=== PATIENT | male | born 1940 | race Caucasian/White ===

== ENCOUNTER 2017-11-30 13:31 | Observation (INO) ==
--- NOTE | 2017-11-30 14:31 | Emergency Department Report ---
Syncope HPI - General Chief Complaint: Syncope Stated Complaint: syncope Time Seen by Provider: 11/30/17 14:45 Source: patient, family Mode of arrival: EMS Limitations: no limitations - History of Present Illness HPI narrative: 77 YO M brought to ED via EMS after syncopal episode at restaurant today. Patient says while standing in line waiting to be seated he began to feel lightheaded and clammy. Went to the restroom and came back out. Patient says he did feel nauseated, but did not "really vomit". Patient took 1 nitro tab at that time due to nausea and feeling clammy. He denies having any chest pain or SOA. Patient had syncopal episode after taking nitro. says that she thinks patient was down approx. 3 minutes. Denies any jerking movement with syncopal event. Patient had heart catheterization by Dr. Lundberg on 11-19-17 and was started on Imdur at that time. Patient's cath report indicated multi-vascular CAD. Patient was recommend for stent. Patient says that he had not eaten prior to lunch or at much to drink this morning. Admits a nonproductive cough for over 1 month. Patient denies fever, chills, abdominal pain, or ataxia. - Related Data Home Medications Medication Instructions Recorded Confirmed Atorvastatin [Lipitor] 80 mg PO DAILY #0 09/06/09 11/30/17 Tamsulosin HCl [Flomax] 0.4 mg PO HS #0 02/07/12 11/30/17 Aspirin [Ecotrin] 81 mg PO DAILY 11/18/17 11/30/17 Nitrostat (nitroglycerin) 0.4 mg 0.4 mg SL Q5M PRN 11/27/17 11/30/17 sublingual tablet Toprol XL metoprolol succinate ER 100 mg PO DAILY 11/27/17 11/30/17 100 mg tablet,extended release 24 hr Tylenol Arthritis 650 mg 1,300 mg PO Q8H PRN 11/27/17 11/30/17 tablet,extended release Ezetimibe 10 mg PO DAILY 11/30/17 11/30/17 Finasteride [Proscar] 5 mg PO HS 11/30/17 11/30/17 buPROPion HCl [Bupropion HCl Sr] 150 mg PO BID 11/30/17 11/30/17 Allergies Allergy/AdvReac Type Severity Reaction Status Date / Time Sulfa (Sulfonamide Allergy Unknown Verified 11/30/17 13:58 Antibiotics) codeine AdvReac Mild Hyperactive Verified 11/30/17 13:58 propoxyphene napsylate AdvReac Mild GETS NO Uncoded 02/10/12 11:21 RELIEF Review of Systems All systems: reviewed and negative except as stated Constitutional: Reports: as per HPI, other (syncope) Gastrointestinal: Reports: as per HPI, nausea PFSH Patient Stated Medical History Cataracts Yes Hypertension Yes Myocardial Infarction Yes: 2007 Diabetes Mellitus Type 1 No Diabetes Mellitus Type 2 No Other GI Yes: umbilical hernia Hx Benign Prostatic Yes Hyperplasia Anemia Yes Other Hematologic Yes: HX DVT LEGS Depression Yes Surgical History: Heart cath. tonsillectomy. hernia Family History: Mother and brother heart disease - Social History Smoking status: Current every day smoker Household members: spouse Physical Exam - Limitations Limitations: no limitations - General General appearance: alert, in no apparent distress - Normal Exams: Head:: Normocephalic without trauma Eyes:: Pupils are PERRLA w/ EOMI, No scleral icterus, irritation, or foreign bodies noted ENMT:: No facial trauma, nasal exudates, pharyngeal erythema, or exudates are noted Neck:: Full range of motion, without adenopathy, JVD Chest/Respirations:: Clear all pineda, with good airflow, and symmetry bilaterally Cardiovascular:: Regular rate and rhythm, without murmur or gallop Abdomen:: Bowel sounds positive, soft, non-tender, non-distended, no hepatosplenomegaly Musculoskeletal:: No tenderness, or deformity noted, good range of motion, all extremities Integumentary:: No rashes Neurological:: Patient is alert, and oriented, cranial nerves, motor/sensory/ cerebellar, exams w/o gross deficits, to observation Psychiatric:: Patient exhibits, appropriate attention, emotion and affect - ENT ENT exam: Present: mucous membranes moist, TM's normal bilaterally - Neck Neck exam: Present: trachea midline - Skin Skin exam: Present: warm, dry, pallor - Expanded Neurological Exam Motor strength - LUE: 5/5 Motor strength - RUE: 5/5 Motor strength - LLE: 5/5 Motor strength - RLE: 5/5 Course - Consultations Consultation #1: Discussed patient's HPI, past medical history, labs, CT head, vital signs, exam findings and treatment in the ER with Dr. Lundberg. Dr. Lundberg would like patient admitted observation under hospitalist and he will consult. Consultation #2: I discussed patient's HPI past medical history, labs, head CT, EKG, exam findings and treatment and conversation I had with Dr. Lundberg in the ER with Dr. Bingham. Dr. Bingham will admit patient. Vital Signs Temperature 97.3 F 11/30/17 13:35 Pulse Rate 51 L 11/30/17 13:35 Respiratory Rate 18 11/30/17 13:35 Blood Pressure 113/59 11/30/17 13:35 Pulse Oximetry 96 11/30/17 13:35 Temperature 97.6 F 12/01/17 07:30 Pulse Rate 65 12/01/17 12:01 Respiratory Rate 15 12/01/17 07:30 Blood Pressure 140/71 H 12/01/17 12:01 Pulse Oximetry 96 12/01/17 07:30 Syncope - MDM Narrative Medical decision making narrative: Patient states he is feeling much better after 1 L of normal saline. Improving blood pressure after fluids with improving color. WBC 9.2 Hgb 11.2 (noted anemia from past medical record) Chemistries unremarkable Troponin 0.104 CT head no acute intracranial findings I discussed with patient due to his syncopal episode/symptoms and PMH that Dr. Lundberg would like him admitted observation status. Patient and his agree with admission. - Differential Diagnosis Likely: syncope due to orthostatic hypotension, vasovagal syncope, complete atrioventricular block, subarachnoid hemorrhage, dehydration (, Medication affect) - Medical Records Attestation: I reviewed the patient's medical records. - Lab Data Attestation: I reviewed the patient's lab results. Result diagrams: 12/01/17 04:22 12/01/17 04:22 Lab Results 11/30/17 11/30/17 Range/Units 15:03 15:03 WBC 9.2 (4.5-11.0) T/MM3 RBC 4.36 L (4.50-5.90) M/MM3 Hgb 11.2 L (13.5-17.5) GM/DL Hct 36.4 L (41-53) % MCV 83.5 (80-100) UM3 MCH 25.7 L (26-34) UUG MCHC 30.8 L (31-37) GM/DL RDW Std Deviation 48.5 (36.9-50.2) FL Plt Count 240 (130-400) T/MM3 MPV 11.3 (9.4-12.4) UM3 Neutrophils % (Manual) 80.0 H (33-66) % Lymphocytes % (Manual) 16.0 L (23-45) % Monocytes % (Manual) 3.0 (0-9.0) % Eosinophils % (Manual) 1.0 (0-4) % Neutrophils # (Manual) 7.4 (1.8-7.7) T/MM3 Lymphocytes # (Manual) 1.5 (1-4.8) T/MM3 Monocytes # (Manual) 0.3 (0-0.8) T/MM3 Eosinophils # (Manual) 0.1 (0-0.5) T/MM3 RBC Morph Comment Normal Turbidity < 20 (0-20) Sodium 142 (134-144) MEQ/L Potassium 4.3 (3.6-5) MEQ/L Chloride 110 H (98-107) MEQ/L Carbon Dioxide 23 (22-30) MEQ/L Anion Gap 9 (5-15) MEQ/L BUN 15.0 (9-20) MG/DL Creatinine 1.2 (0.8-1.5) MG/DL GFR Calculation 59 BUN/Creatinine Ratio 13 (6-26) RATIO Glucose 111 H (75-110) MG/DL Calculated Osmolality 275 (261-280) MOSM/KG Calcium 8.5 (8.4-10.2) MG/DL Total Bilirubin < 0.10 L (0.20-1.30) MG/DL Icterus Index < 2 (0-7) AST 19 (17-59) U/L ALT 32 (21-72) U/L Alkaline Phosphatase 74 (38-126) U/L Troponin I < 0.012 (0-0.12) ng/ml Total Protein 6.1 L (6.3-8.2) G/DL Albumin 3.2 L (3.5-5.0) G/DL Globulin 2.9 (2.4-3.6) G/DL Albumin/Globulin Ratio 1.1 (1.1-2.2) RATIO Specimen Hemolysis < 15 (0-25) - Radiology Data Attestation: I reviewed the patient's radiology results. CT head: no acute intracranial findings ([facility]-RAD) - EKG Data EKG #1 EKG attestation: Yes: I reviewed and interpreted this EKG. EKG results narrative: Sinus bradycardia HR 47 bpm, first degree AV block (Dr. Galloway) Disposition Clinical Impression: Bradycardia Episode of syncope Qualifiers: Syncope type: unspecified Qualified Code(s): R55 - Syncope and collapse Disposition: 02 [place] [facility] [place]: Improved - Seen By: midlevel
[2017-11-30] MEDS ORDERED: NS 1,000 ML IV ONE (14:57)
[2017-11-30] MEDS: SALINE FLUSH 10ml SYRINGE IVF PRN ×2 (15:03→17:17)
--- NOTE | 2017-11-30 16:41 | History & Physical Report ---
History of Present Illness Date: 11/30/17 Chief complaint: syncopal episode HPI: Mr Connolly is a pleasant 77-year-old male who was out to eat lunch with his today at [facility]. He was standing in line, and began to feel lightheaded, followed by nausea. He proceeded to have a syncopal episode that was witnessed by the . EMS was contacted and transported patient to [facility] emergency room for further evaluation. On arrival, patient was found to be mildly hypotensive with a systolic in the 90s. He was also pale and diaphoretic initially. He was given a liter of fluid and had basic laboratory studies obtained. Was noted to be mildly anemic with a hemoglobin of 11.2, however, this is a known chronic problem being worked out in the outpatient setting. Chemistry panel was normal, troponin undetectable. 12 lead EKG- Sinus mee at 47 with first-degree AV block. CT scan of the brain was unremarkable. Patient underwent a cardiac catheterization on 11/19/17 under the care of Dr. Lundberg. He was found to have multi-vascular coronary artery disease and was recommended to have coronary stent placement versus CABG following outpatient workup for anemia. Postprocedure, patient was started on Imdur 30 milligrams daily. He has not had any episodes of lightheadedness, dizziness or chest pain since her catheterization. He does state that he did not eat much this morning as he anticipated a big lunch. Patient is seen at time of admission, he is alert, oriented and pleasant accompanied by family. He is sitting up on the edge of the bed, he does appear mildly pale, however reports this is much improved from previously. He is noted to be bradycardic in the 40s to 50s at the bedside monitor. He is without any complaints currently. States he feels much better following IV fluids. We did discuss advanced directives. He does indicate he would like to be a full code in an acute situation, however, would not want life-sustaining measures long-term such as ventilation or feeding tube. Review of Systems All systems PM: 10-point ROS was reviewed, no additional remarkable complaints except Review of systems: Currently denies all review of systems. Prior to his syncopal event. He complained of diaphoresis, nausea, lightheadedness and dizziness Past Medical History Patient Stated Medical History Coronary artery disease History of [place]-2007 Hypertension Hypercholesterolemia Anemia History of DVT Depression BPH Cataracts Medical History Updates: Heart Cath- 11/19/17- Dr Lundberg. IMPRESSION. 1. Multivessel coronary artery disease as manifested by severe occlusion of the first obtuse marginal branch (complex lesion) of about 90% as described above. In addition, the second obtuse marginal branch has about 60% stenosis. The proximal LAD stent appears angiographically patent. Ostial LAD exhibits a moderate stenosis angiographically estimated about 50%-60%. 2. Dominant LCX. 3. Normal left ventricular systolic function. Surgical History: Prostate biopsy. Tonsillectomy. Angioplasty-2007. 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 Umbilical hernia repair. Rec extraction Family History Updates: Father-diabetes. Mother-heart disease. multiple Brothers -heart disease and diabetes - Social History Smoking status: Current every day smoker Substance use type: does not use Alcohol intake frequency: does not drink Housing: house Household members: spouse Current occupational status: retired Social history: Primary care provider, Dr Torres Radiologists, Dr. Lundberg Medications Home Medications Medication Instructions Recorded Confirmed Type Atorvastatin [Lipitor] 80 mg PO DAILY #0 09/06/09 11/30/17 History Tamsulosin HCl [Flomax] 0.4 mg PO HS #0 02/07/12 11/30/17 History Aspirin [Ecotrin] 81 mg PO DAILY 11/18/17 11/30/17 History Nitrostat (nitroglycerin) 0.4 mg 0.4 mg SL Q5M PRN 11/27/17 11/30/17 History sublingual tablet Toprol XL metoprolol succinate ER 100 mg PO DAILY 11/27/17 11/30/17 History 100 mg tablet,extended release 24 hr Tylenol Arthritis 650 mg 1,300 mg PO Q8H PRN 11/27/17 11/30/17 History tablet,extended release Ezetimibe [Ezetimibe] 10 mg PO DAILY 11/30/17 11/30/17 History Finasteride [Proscar] 5 mg PO HS 11/30/17 11/30/17 History buPROPion HCl [Bupropion HCl Sr] 150 mg PO BID 11/30/17 11/30/17 History Allergies Allergy/AdvReac Type Severity Reaction Status Date / Time Sulfa (Sulfonamide Allergy Unknown Verified 11/30/17 13:58 Antibiotics) codeine AdvReac Mild Hyperactive Verified 11/30/17 13:58 propoxyphene napsylate AdvReac Mild GETS NO Uncoded 02/10/12 11:21 RELIEF Exam Vital Signs: Temperature 97.3 F 11/30/17 13:35 Pulse Rate 58 L 11/30/17 15:41 Respiratory Rate 18 11/30/17 13:35 Blood Pressure 112/55 11/30/17 15:41 Pulse Oximetry 98 11/30/17 15:41 Telemetry Rhythm: Sinus Bradycardia Height/Weight/BMI: Height 1.8 m Weight 95.254 kg - Constitutional Present: no acute distress, well nourished, well developed - Routine HEENT Exam Eye: Present: EOMI ENT: Present: mucous membranes moist, dentition normal - Routine Respiratory Exam Present: CTA bilaterally. Absent: wheezes - Routine Cardiovascular Exam Present: RRR, S1, S2. Absent: murmur - Routine Abdominal Exam Present: soft, normoactive bowel sounds, non distended. Absent: tenderness - Routine Extremities Exam Present: full ROM - Routine Back/Spine/Pelvis Exam Back/Spine: Present: full ROM - Routine Skin Exam Present: intact, dry, pallor, warm - Routine Neurological Exam Present: alert, oriented X3, CN II-XII intact, moving all extremities - Routine Psychiatric Exam Present: normal affect, cooperative Results - Labs CBC & Chem 7: 11/30/17 15:03 11/30/17 15:03 Assessment and Plan (1) Episode of syncope Current visit: Yes Status: Acute (2) Sinus bradycardia Current visit: Yes Status: Acute Assessment and Plan: Impression Syncopal episode Bradycardia Known coronary artery disease Anemia Hypertension Hyperlipidemia Chronic tobacco use Plan Admit patient to outpatient observation under care of Dr. Bingham for syncopal episode and bradycardia. Will monitor patient on cardiac telemetry given bradycardia. Consult placed to Dr. Lundberg for his expertise and medication recommendation. Patient does continue to be bradycardic and has recently been placed on Imdur 30 a day in addition to metoprolol succinate 100 milligrams daily. Discussed with patient and that he may use home medications during hospital stay. Continue with gentle hydration, normal saline at 100 ML per hour May have cardiac diet SCDs to bilateral lower extremity for DVT prophylaxis Recheck morning labs Full Code as requested by patient Will discuss further orders and plan of care with attending, Dr. Bingham At time of discharge medical care will return to primary care provider, Dr Torres DVT Prophylaxis: SCD's Resuscitation Status: Full Code - Physician Narrative Physician: Elsa Bingham MD Narrative: Date: 11/30/17 Time: 1939 I have independently evaluated and examined this patient. I reviewed the chart, the patient's history, and the [employer]PRENTICE/PA's documented findings as above. We discussed and formulated the assessment and plan as above with additions as below: Mr. Connolly was seen with his at the bedside. Syncope earlier today preceded by nausea, dizziness, and feeling clammy is described. The patient vomited and began to lose consciousness at which time he was assisted to the floor but did strike his head although not intensely. There was associated fecal incontinence but no seizure activity described. Patient subsequently ambulated in the emergency room without difficulty. Patient is unaware of what his heart rate chronically runs but review of hospitalization for cardiac catheterization indicates heart rates typically in the 50s. NAD, alert, fluent speech Respirations nonlabored, good airflow, regular cardiac rhythm with borderline bradycardia, S1-S2 EKG without acute changes per ER description-tracing did not accompany patient to the floor and has not been scanned into the electronic record. Telemetry with sinus bradycardia. Initial troponin nondetectable. Head CT reviewed by myself-no acute pathology. Observe overnight with neuro checks, serial troponins, and continued telemetry. Dr. Lundberg will review in a.m. Discussed with Dr. Lundberg and ER provider. Hospital Course Summary Disclaimer: The visit summary below is not to be considered part of the above Progress Note. Hospital Course: Impression Syncopal episode Bradycardia Known coronary artery disease Anemia Hypertension Hyperlipidemia Chronic tobacco use Plan Admit patient to outpatient observation under care of Dr. Bingham for syncopal episode and bradycardia. Will monitor patient on cardiac telemetry given bradycardia. Consult placed to Dr. Lundberg for his expertise and medication recommendation. Patient does continue to be bradycardic and has recently been placed on Imdur 30 a day in addition to metoprolol succinate 100 milligrams daily. Discussed with patient and that he may use home medications during hospital stay. Continue with gentle hydration, normal saline at 100 ML per hour May have cardiac diet SCDs to bilateral lower extremity for DVT prophylaxis Recheck morning labs Full Code as requested by patient Will discuss further orders and plan of care with attending, Dr. Bingham At time of discharge medical care will return to primary care provider, Dr Torres
[2017-11-30 17:16] VITALS: BMI 28.8
[2017-11-30] MEDS: NS 1,000 ML IV SCH (17:17)
[2017-11-30] MEDS ORDERED: NITROGLYCERIN 0.4 MG SUBLINGUAL TABLET SL PRN (17:59)
[2017-11-30] MEDS ORDERED: ACETAMINOPHEN 650 MG PO PRN (17:59)
--- NOTE | 2017-11-30 19:10 | CT Scan Report ---
Indication: syncope CT head/brain wo con: Comparison: None Technique: Nonenhanced axial imaging with brain and bone window evaluation using dose reduction imaging technology Findings: Patient shows degenerative changes with atrophy and deep white matter changes with no acute findings such as hemorrhage, midline shift or mass. Bone window evaluation showed no acute bony findings. No skull fractures are seen. Visualized sinuses and mastoids are clear. Impression: 1. Generalized atrophy and deep white matter change without acute findings such as hemorrhage, midline shift or mass effect. 2. Findings were communicated ordering clinician by the V rad service on a callback basis. .
[2017-11-30] MEDS ORDERED: --POM--TAMSULOSIN 0.4 MG CAPSULE PO SCH (21:00)
[2017-11-30] MEDS ORDERED: --POM--FINASTERIDE 5 MG TABLET PO SCH (21:00)
[2017-11-30] MEDS: BUPROPION 150 MG PO SCH (21:16)
[2017-11-30 23:29] VITALS: TEMP 97.6; O2SAT 96
[2017-12-01] MEDS ORDERED: DiphenhydrAMINE 25 MG CAPSULE PO ONE (00:30)
[2017-12-01] MEDS: NS 1,000 ML IV SCH (03:20)
[2017-12-01 07:31] VITALS: RESP 15
[2017-12-01] MEDS ORDERED: METOPROLOL SUCCINATE 100 MG PO SCH (09:00)
[2017-12-01] MEDS ORDERED: EZETIMIBE 10 MG PO SCH (09:00)
[2017-12-01] MEDS ORDERED: --POM--ATORVASTATIN 40 MG TABLET PO SCH (09:00)
[2017-12-01] MEDS ORDERED: --POM--ASPIRIN *EC* 81 MG TABLET PO SCH (09:00)
[2017-12-01] MEDS: BUPROPION 150 MG PO SCH (09:15)
--- NOTE | 2017-12-01 12:29 | Cardiology Consult Note ---
<Alexandra Coronado Alvaro - Last Filed: 12/01/17 13:25> History of Present Illness Consult reason: known to you History of present illness: Mr. Connolly is a 77 year old male known to me with a history of CAD. Pt was with his yesterday at [employer] for lunch and while standing in line he began to feel lightheaded and sweaty. He went to the bathroom and a short time later returned to where his was. They sat down at a table and pt began to feel sick again (per , he was very pale, cold and clammy, and sweating profusely). Pt took 1 NTG. Pt denied chest pain but took NTG because he thought it was his heart as to why he was feeling sick. Pt returned to the bathroom for a second time and then had a syncopal episode - (and a couple other individuals) was present because she followed him to the bathroom. said when pt fainted he had a BM. denied pt to have jerking movements or biting of his tongue. said pt came back a few minutes later - initially was "woozy" but then asked what had happened. EMS brought to ER. Pt said he had been doing okay prior to [facility]. Pt said yesterday morning he only had a cup of coffee in the morning and hadn't eaten anything prior to going to [employer] around 1pm. Pt today denies chest pain, heart palpitations, dizziness/lightheadedness, nausea. Pt having serial troponins - has trended up to 0.152 this a.m. at 0422. Pt is currently being worked up by Dr. Torres as outpatient for anemia - pt denies any melena or hematochezia. Following his heart cath on 11/19, which showed multivessel CAD, he had been started on Imdur - pt had been having right arm ache that was relieved with Imdur. Pt was being followed for multivessel CAD until after OP workup for anemia was complete. labs and tele reviewed Review of Systems All systems PM: 10-point ROS was reviewed, no additional remarkable complaints except PFSH Patient Stated Medical History Cataracts Yes Hypertension Yes Myocardial Infarction Yes: 2008 Other GI Yes: umbilical hernia Hx Benign Prostatic Yes Hyperplasia Anemia Yes Other Hematologic Yes: HX DVT LEGS Depression Yes Medical History Updates: Heart Cath- 11/19/17- Dr Lundberg. IMPRESSION. 1. Multivessel coronary artery disease as manifested by severe occlusion of the first obtuse marginal branch (complex lesion) of about 90% as described above. In addition, the second obtuse marginal branch has about 60% stenosis. The proximal LAD stent appears angiographically patent. Ostial LAD exhibits a moderate stenosis angiographically estimated about 50%-60%. 2. Dominant LCX. 3. Normal left ventricular systolic function. Surgical History: Prostate biopsy. Tonsillectomy. Angioplasty-2007. 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 Umbilical hernia repair. Rec extraction - Social History Smoking status: Current every day smoker Medications Home Medications Medication Instructions Recorded Confirmed Type Atorvastatin [Lipitor] 80 mg PO DAILY #0 09/06/09 11/30/17 History Tamsulosin HCl [Flomax] 0.4 mg PO HS #0 02/07/12 11/30/17 History Aspirin [Ecotrin] 81 mg PO DAILY 11/18/17 11/30/17 History Nitrostat (nitroglycerin) 0.4 mg 0.4 mg SL Q5M PRN 11/27/17 11/30/17 History sublingual tablet Toprol XL metoprolol succinate ER 100 mg PO DAILY 11/27/17 11/30/17 History 100 mg tablet,extended release 24 hr Tylenol Arthritis 650 mg 1,300 mg PO Q8H PRN 11/27/17 11/30/17 History tablet,extended release Ezetimibe 10 mg PO DAILY 11/30/17 11/30/17 History Finasteride [Proscar] 5 mg PO HS 11/30/17 11/30/17 History buPROPion HCl [Bupropion HCl Sr] 150 mg PO BID 11/30/17 11/30/17 History Allergies Allergy/AdvReac Type Severity Reaction Status Date / Time Sulfa (Sulfonamide Allergy Unknown Verified 11/30/17 13:58 Antibiotics) codeine AdvReac Mild Hyperactive Verified 11/30/17 13:58 propoxyphene napsylate AdvReac Mild GETS NO Uncoded 02/10/12 11:21 RELIEF Exam Vital signs: Temperature 97.6 F 12/01/17 07:30 Pulse Rate 67 12/01/17 07:30 Respiratory Rate 15 12/01/17 07:30 Blood Pressure 135/71 12/01/17 07:30 Pulse Oximetry 96 12/01/17 07:30 - Constitutional no acute distress, well developed, cooperative - Routine HEENT Exam Head: Present: normocephalic, atraumatic Eye: Present: EOMI, PERRL ENT: Present: mucous membranes moist - Routine Neck Exam Present: supple, full ROM, normal carotid upstroke. Absent: JVD, carotid bruit - Routine Respiratory Exam Present: CTA bilaterally. Absent: rhonchi, wheezes, crackles - Routine Cardiovascular Exam Present: RRR. Absent: murmur, gallop, rubs, JVD - Routine Abdominal Exam Present: soft, normoactive bowel sounds, non distended, non tender. Absent: rebound, guarding, organomegaly, mass - Routine Extremities Exam Present: edema, pulses intact, normal capillary refill. Absent: cyanosis, clubbing - Routine Skin Exam Present: intact, dry. Absent: cyanosis, erythema - Routine Neurological Exam Present: alert, oriented X3, CN II-XII intact, moving all extremities, vision grossly intact, hearing grossly intact, normal speech. Absent: sensory deficit , motor deficit, facial asymmetry - Routine Psychiatric Exam Present: normal affect, cooperative Results 12/01/17 04:22 12/01/17 04:22 Cardiac Enzymes 11/30/17 12/01/17 Range/Units 21:49 04:22 Troponin I 0.104 D 0.152 H (0-0.12) ng/ml CBC 12/01/17 Range/Units 04:22 WBC 6.7 (4.5-11.0) T/MM3 RBC 4.00 L (4.50-5.90) M/MM3 Hgb 10.3 L (13.5-17.5) GM/DL Hct 34.0 L (41-53) % Plt Count 242 (130-400) T/MM3 Neut # (Auto) 4.3 (1.8-7.7) T/MM3 Lymph # (Auto) 1.8 (1-4.8) T/MM3 Bland # (Auto) 0.5 (0-0.8) T/MM3 Eos # (Auto) 0.1 (0-0.5) T/MM3 Baso # (Auto) 0.0 (0-0.2) T/MM3 Comprehensive Metabolic Panel 12/01/17 Range/Units 04:22 Sodium 141 (134-144) MEQ/L Potassium 3.9 (3.6-5) MEQ/L Chloride 111 H (98-107) MEQ/L Carbon Dioxide 23 (22-30) MEQ/L BUN 12.0 (9-20) MG/DL Creatinine 1.0 D (0.8-1.5) MG/DL Glucose 129 H (75-110) MG/DL Calcium 8.3 L (8.4-10.2) MG/DL Intake and Output 11/30/17 12/01/17 12/01/17 22:59 06:59 14:59 Intake Total 200 / 1200 1100 / 1100 320 / 320 Output Total 550 / 550 350 / 350 Balance -350 / 650 750 / 750 320 / 320 Intake: IV 1000 / 1000 Ns 1,000 ml @ 100 mls/hr IV . 1000 / 1000 Q10H DAVID Rx#:[id number] Oral 200 / 200 100 / 100 320 / 320 Output: Urine 550 / 550 350 / 350 Other: Urine Appearance Clear Urine Color Straw Straw Stool Color Brown Stool Consistency Soft Size of Bowel Movement Moderate # Bowel Movements 1 Weight 93.7 kg 93.8 kg Patient Weight 12/02/17 06:59 Weight 93.8 kg - Imaging and Cardiology EKG results: image reviewed (sinus bradycardia in 50's with 1st degree AV block) Imaging & Cardiology Narrative: 12/01/17 12:[address] in ER 11/30 No acute findings of hemorrhage, midline shift or mass effect. Assessment and Plan - Assessment and Plan syncopal episode mild bradycardia elevated troponin - likely type II AK from hypotension anemia CAD - last heart cath on 11/19/[address] Elmer Lundberg showed 90% stenosis 1st OM branch, 60% stenosis 2nd OM branch, 50-60% ostial LAD Discussed with patient and to transfer to [place] to proceed with IVUS plus possible stent (by Dr. Suresh Lundberg) vs. CABG. Pt and understood and agreed. Consider inpatient GI workup for anemia Pt has been personally seen and interviewed by Dr. Elmer Lundberg who has created the A&P. Hospital Course Summary Disclaimer: The visit summary below is not to be considered part of the above Progress Note. Hospital Course: Impression Syncopal episode Bradycardia Known coronary artery disease Anemia Hypertension Hyperlipidemia Chronic tobacco use Plan Admit patient to outpatient observation under care of Dr. Bingham for syncopal episode and bradycardia. Will monitor patient on cardiac telemetry given bradycardia. Consult placed to Dr. Lundberg for his expertise and medication recommendation. Patient does continue to be bradycardic and has recently been placed on Imdur 30 a day in addition to metoprolol succinate 100 milligrams daily. Discussed with patient and that he may use home medications during hospital stay. Continue with gentle hydration, normal saline at 100 ML per hour May have cardiac diet SCDs to bilateral lower extremity for DVT prophylaxis Recheck morning labs Full Code as requested by patient Will discuss further orders and plan of care with attending, Dr. Bingham At time of discharge medical care will return to primary care provider, Dr Torres <Shelly Lundberg - Last Filed: 12/08/17 21:44> Review of Systems All systems PM: 10-point ROS was reviewed, no additional remarkable complaints except PFSH Patient Stated Medical History Cataracts Yes Hypertension Yes Myocardial Infarction Yes: 2008 Other GI Yes: umbilical hernia Hx Benign Prostatic Yes Hyperplasia Anemia Yes Other Hematologic Yes: HX DVT LEGS Depression Yes Exam Vital signs: Temperature 97.6 F 12/01/17 07:30 Pulse Rate 65 12/01/17 12:01 Respiratory Rate 15 12/01/17 07:30 Blood Pressure 140/71 H 12/01/17 12:01 Pulse Oximetry 96 12/01/17 07:30 - Routine Cardiovascular Exam Present: S1 (nl), S2 (nl) - Routine Extremities Exam Present: edema Results 12/01/17 04:22 12/01/17 04:22 Cardiac Enzymes 11/30/17 12/01/17 Range/Units 21:49 04:22 Troponin I 0.104 D 0.152 H (0-0.12) ng/ml CBC 12/01/17 Range/Units 04:22 WBC 6.7 (4.5-11.0) T/MM3 RBC 4.00 L (4.50-5.90) M/MM3 Hgb 10.3 L (13.5-17.5) GM/DL Hct 34.0 L (41-53) % Plt Count 242 (130-400) T/MM3 Neut # (Auto) 4.3 (1.8-7.7) T/MM3 Lymph # (Auto) 1.8 (1-4.8) T/MM3 Bland # (Auto) 0.5 (0-0.8) T/MM3 Eos # (Auto) 0.1 (0-0.5) T/MM3 Baso # (Auto) 0.0 (0-0.2) T/MM3 Comprehensive Metabolic Panel 12/01/17 Range/Units 04:22 Sodium 141 (134-144) MEQ/L Potassium 3.9 (3.6-5) MEQ/L Chloride 111 H (98-107) MEQ/L Carbon Dioxide 23 (22-30) MEQ/L BUN 12.0 (9-20) MG/DL Creatinine 1.0 D (0.8-1.5) MG/DL Glucose 129 H (75-110) MG/DL Calcium 8.3 L (8.4-10.2) MG/DL Intake and Output 12/01/17 12/01/17 12/01/17 06:59 14:59 22:59 Intake Total 1100 / 1100 1570 / 1570 Output Total 350 / 350 Balance 750 / 750 1570 / 1570 Intake: IV 1000 / 1000 1000 / 1000 Ns 1,000 ml @ 100 mls/hr IV . 1000 / 1000 1000 / 1000 Q10H DAVID Rx#:[id number] Oral 100 / 100 570 / 570 Output: Urine 350 / 350 Other: Urine Color Straw Weight 93.7 kg Patient Weight 12/02/17 06:59 Weight 93.7 kg - Imaging and Cardiology EKG results: other (no acute ST depression or elevation of ischemia) - EKG Interpretation EKG: sinus rhythm Assessment and Plan - Assessment and Plan I personally interviewed and examined pt and agree with the above Hospital Course Summary Disclaimer: The visit summary below is not to be considered part of the above Progress Note.
[2017-12-01 13:01] VITALS: BP 140/71; PULSE 65
--- NOTE | 2017-12-01 17:36 | Discharge Summary ---
Discharge Information Date of admission: 11/30/17 16:12 Anticipated date of discharge: 12/01/17 Attending Physician: Elsa Bingham MD Primary care physician: Britton Torres MD Consults: Consulting Provider: Shelly Lundberg Reason For Exam: bradycardia, CAD - Discharge Diagnosis (1) Episode of syncope Status: Acute (2) Sinus bradycardia Status: Acute Syncope Troponin bump, possible type II non-STEMI Bradycardia, sinus Known coronary artery disease Anemia Hypertension Hyperlipidemia Chronic tobacco use Normocytic anemia - Laboratory Labs: 12/01/17 04:22 12/01/17 04:22 Troponin <0.012-0.104-0.152 - Radiology Radiology: Noncontrast CT of the head on 11/30/17: Nonenhanced axial imaging with brain and bone window evaluation using dose reduction imaging technology Findings: Patient shows degenerative changes with atrophy and deep white matter changes with no acute findings such as hemorrhage, midline shift or mass. Bone window evaluation showed no acute bony findings. No skull fractures are seen. Visualized sinuses and mastoids are clear. Impression: Generalized atrophy and deep white matter change without acute findings such as hemorrhage, midline shift or mass effect. History of Present Illness HPI: Mr Connolly is a pleasant 77-year-old male who was out to eat lunch with his today at [facility]. He was standing in line, and began to feel lightheaded, followed by nausea. He proceeded to have a syncopal episode that was witnessed by the . EMS was contacted and transported patient to [facility] emergency room for further evaluation. On arrival, patient was found to be mildly hypotensive with a systolic in the 90s. He was also pale and diaphoretic initially. He was given a liter of fluid and had basic laboratory studies obtained. Was noted to be mildly anemic with a hemoglobin of 11.2, however, this is a known chronic problem being worked out in the outpatient setting. Chemistry panel was normal, troponin undetectable. 12 lead EKG- Sinus mee at 47 with first-degree AV block. CT scan of the brain was unremarkable. Patient underwent a cardiac catheterization on 11/19/17 under the care of Dr. Lundberg. He was found to have multi-vascular coronary artery disease and was recommended to have coronary stent placement versus CABG following outpatient workup for anemia. Postprocedure, patient was started on Imdur 30 milligrams daily. He has not had any episodes of lightheadedness, dizziness or chest pain since her catheterization. He does state that he did not eat much this morning as he anticipated a big lunch. Patient is seen at time of admission, he is alert, oriented and pleasant accompanied by family. He is sitting up on the edge of the bed, he does appear mildly pale, however reports this is much improved from previously. He is noted to be bradycardic in the 40s to 50s at the bedside monitor. He is without any complaints currently. States he feels much better following IV fluids. We did discuss advanced directives. He does indicate he would like to be a full code in an acute situation, however, would not want life-sustaining measures long-term such as ventilation or feeding tube. Objective Vital signs: Temperature 97.6 F 12/01/17 07:30 Pulse Rate 65 12/01/17 12:01 Respiratory Rate 15 12/01/17 07:30 Blood Pressure 140/71 H 12/01/17 12:01 Pulse Oximetry 96 -RA 12/01/17 07:30 NAD, alert, fluent speech Respirations nonlabored Regular rhythm, S1-S2 Height/Weight/BMI: Height 1.8 m Weight 93.7 kg Body Mass Index 28.8 Hospital Course This is a general summary of the patient's hospital course. For more details refer to the complete medical record. Hospital course: Impression Syncopal episode Bradycardia Known coronary artery disease Anemia Hypertension Hyperlipidemia Chronic tobacco use Plan Mr. Connolly was hospitalized for evaluation of syncope and bradycardia. Dr. Lundberg was consulted due to known coronary disease requiring further cardiac interventions. Telemetry was initiated revealing sinus bradycardia but no higher grade arrhythmias. Serial cardiac enzymes were obtained with slow rise in troponin without EKG changes on admission or by follow-up EKG the morning of 12/01. Metoprolol was continued as bradycardia with heart rates in the 50s has been present previously and asymptomatic. Imdur was held however as this is a new medication. Following evaluation by Dr. Lundberg on the morning of 12/01 and in light of slight bump in troponin it was elected to transfer the patient to [facility] for further cardiac intervention. This had previously been anticipated following cardiac catheterization with stent placement at [facility] 2 weeks ago. Transfer arrangements were made with the assistance of case management. Dr. Lundberg will admit at [place] with plans to proceed to IVUS by Dr. Suresh Lundberg. Patient is aware of plans which were discussed with both he and his . Resuscitation Status: Full Code Discharge Plan - Discharge Disposition Discharge Date: 12/01/17 Disposition: 02 To [facility] Acute Care *Condition: Improved Reason For Visit (Visit label in EMR): syncope - Discharge Medications *Discharge Medications: Continue Ezetimibe 10 mg PO DAILY Finasteride [Proscar] 5 mg PO HS Atorvastatin [Lipitor] 80 mg PO DAILY #0 Tamsulosin HCl [Flomax] 0.4 mg PO HS #0 Aspirin [Ecotrin] 81 mg PO DAILY buPROPion HCl [Bupropion HCl Sr] 150 mg PO BID Nitrostat (nitroglycerin) 0.4 mg sublingual tablet 0.4 mg SL Q5M PRN PRN Reason: Chest Pain Toprol XL metoprolol succinate ER 100 mg tablet,extended release 24 hr 100 mg PO DAILY Tylenol Arthritis 650 mg tablet,extended release 1,300 mg PO Q8H PRN PRN Reason: pain Discontinued Isosorbide Mononitrate ER [Imdur] 30 mg PO DAILY #30 tab - Discharge Packet/Instructions *Diet: Cardiac diet *Activity: As tolerated-final instructions will be determined at [place] *Pain Management/Treatment: See medication list, Tylenol as previously taken *Wound Care: Not applicable *Expected Signs/Symptoms: No symptoms expected at present although if heart rate is slow you may become lightheaded or dizzy or even pass out *Notify Physician if: Chest pain, dizziness, syncope *During Business Hours Contact: Dr. Torres or Dr. Lundberg's offices *After Business Hours Contact: Call [facility] at [phone] and ask that the on-call physician be paged for Dr. Torres or Dr. Lundberg *Pending Lab/Results: No Pending Lab - Referrals/Follow Up *Referrals/Follow Up: Shelly Lundberg MD [Physician] - (As instructed when you discharge from [place]) Britton Torres MD [Family Provider] - (Follow-up in about [id number] may depend on discharge from [place]) - Patient Handouts Patient Handouts: Syncope (GEN) - Dismissal Complete Discharge Instructions are:: Complete Physician Narrative - Narrative Attestation Narrative: Date: 12/01/17 Time: 2451
== END 2017-12-01 14:40 | disposition short-term general hospital (02) ==
LOC: ED 13:31 → MED 13:31
PROVIDERS: ADMIT Internal Medicine; ATTEND Internal Medicine